=== PATIENT | male | born 1985 ===

== ENCOUNTER 2018-04-10 11:30 | Day surgery (SDC) | payer BC ==
[2018-04-03 10:14] VITALS: BMI 26.3
--- NOTE | 2018-04-10 13:24 | CP.SDSHP ---
Same Day Surgery H & P - History Proposed Procedure: R axillary hydradenitis excision Pre-Op Diagnosis: R axillary hydradenitis - Previous Medical/Surgical History Pain: 0. No Pain - Allergies Allergies: Allergies No Known Allergies Allergy (Verified 04/10/18 12:06) - Physical Exam General Appearance: NAD Vital Signs: Vital Signs 04/10/18 04/10/18 11:55 12:01 Temperature 98.2 F Pulse Rate 71 71 Respiratory 18 Rate Blood Pressure 121/80 O2 Sat by Pulse 98 Oximetry Mental Status: Alert & Oriented x3 Neuro: WNL Heart: WNL Lungs: WNL GI: WNL - {Optional Preform as Required} Abdomen: WNL Integument: Other (hydradenitis) - Date & Time Date: 04/10/18 Time: 13:23 Short Stay Discharge - Short Stay Discharge Admitting Diagnosis/Reason for Visit: L72.3 Disposition: HOME/ ROUTINE Referrals: Abdirizak Lopez MD [Primary Care Provider] - Saida Reardon MD [Staff Provider] - Follow-up: follow up at Dr. Reardon's office in 1-2 weeks. OK to take shower in 2 days. Take dressing off when taking shower
[2018-04-10] MEDS ORDERED: Lactated Ringer's 1,000 ML IV ONE (14:00)
[2018-04-10] MEDS ORDERED: Propofol 10 mg/ml Inj (20 ML) ONE (14:00)
[2018-04-10] MEDS ORDERED: Midazolam 2 MG/2 ML VIAL ONE (14:00)
--- NOTE | 2018-04-10 15:10 | PCM.SURG1 ---
Surgeon's Initial Post Op Note - Surgeon's Notes Surgeon: Dr. Reardon [employer]urb[employer] Installer: Dr. Smyth PGY2, Dr. Hope PGY2 Type of Anesthesia: General LMA Pre-Operative Diagnosis: B/l hidradenitis of axilla Operative Findings: B/l hidradenitis of axilla Post-Operative Diagnosis: same Operation Performed: Excision of hidradenitis in Left axilla. Excision of hidradenitis in Right axilla Specimen/Specimens Removed: hidradenitis of left axilla. hidradenitis of right axilla Estimated Blood Loss: EBL {In ML}: 50 Blood Products Given: N/A Drains Used: No Drains Post-Op Condition: Good Date of Surgery/Procedure: 04/10/18 Time of Surgery/Procedure: 14:00
[2018-04-10] MEDS ORDERED: Oxycodone/Acetaminophen 5/325 mg Tab PO PRN (15:11)
[2018-04-10] MEDS ORDERED: Lactated Ringer's 1,000 ML IV SCH (15:15)
[2018-04-10] MEDS: Morphine 4 MG/ML VIAL IVP PRN ×2 (16:20→16:30)
[2018-04-10 17:55] VITALS: BP 120/82; PULSE 59; RESP 18; TEMP 98; O2SAT 98
--- NOTE | 2018-04-13 11:44 | OP ---
PROCEDURE DATE: 04/10/2018 SURGEON: Saida Reardon MD ASSISTANTS: Dr. Smyth and Dr. Hope. ANESTHESIA General. PREOPERATIVE DIAGNOSIS: Hidradenitis of right and left axilla. POSTOPERATIVE DIAGNOSIS: Hidradenitis of right and left axilla. PROCEDURE: Excision of hidradenitis of left axilla and excision of hidradenitis of right axilla. DESCRIPTION OF OPERATION: With the patient in the supine position with both arms abducted, each axilla was prepped and draped in the usual sterile manner. On the left side, the patient was noted to have two sinus openings with chronic granulation tissue approximately 1 cm apart at the lower axillary hairline and an elliptical incision was marked to encompass both of these openings. The full-thickness of skin was incised and the inflamed subcutaneous tissue was dissected free of surrounding normal fatty subcutaneous tissue circumferentially and down to the axillary fascia and the involved tissue was excised. The operative site was irrigated and hemostasis achieved with cautery and closure was performed with interrupted subcuticular sutures of 4-0 Monocryl and Steri-Strips. Attention was turned to the right axilla where three sinus openings were noted within approximately a 3-4 cm line along the lower axillary hairline and a crescentic incision was made to encompass the openings and a single larger subcutaneous cyst, which was completely excised. Again the involved tissue was sharply dissected away from the surrounding normal subcutaneous fat and excised down to the full depth of the subcutaneous tissue off the axillary fascia. The operative site was irrigated and hemostasis was achieved with cautery. Few subcutaneous sutures of 4-0 Monocryl were used to approximate the wound and the closure was then performed with running subcuticular suture of 4-0 Monocryl and Steri-Strips. Dry sterile dressings with fluffy compression were applied bilaterally. The patient tolerated the procedure well and transferred to the recovery room in stable condition. Estimated blood loss for the procedure was 50 mL. Saida Reardon MD
== END 2018-04-10 18:25 | disposition home or self-care (01) ==
LOC: H.OPSURG 11:30
PROVIDERS: ATTEND Specialist
DX: L73.2 Hidradenitis suppurativa (principal)
CPT/HCPCS: 11462; J0690; J2250; J2270; J2405; J2704; J3010; J7120